=== PATIENT | male | born 1930 | race Caucasian/White ===

== ENCOUNTER → 2018-08-23 | Outpatient (REF) | payer MEDICARE ==
[~2018-08-23] MED LIST: ASPIRIN EC LOW81 MG PO; CIPROFLOXACN500 MG PO; DILAUDID 2MG2 MG/TAB PO; LOSARTAN POT50 MG PO; NATURAL VIT PO; NITROSTAT0.4 MG SL; PLAVIX75 MG PO; SIMVASTATIN40 MG PO; SUPER B COM2 PO; TENORMIN25 M1 PO; TRILIPIX45 MG PO; VITAMIN D31000 UNI1 PO; ZOCOR20 M1 PO
== END | disposition home or self-care (01) ==
LOC: LAB 10:24
DX: C61 Malignant neoplasm of prostate (principal)